=== PATIENT | female | born 1955 | race Hispanic/Latino ===

== ENCOUNTER → 2018-06-03 | Outpatient (CLI) | payer MEDICARE ==
[~2018-06-03] MED LIST: CARV3.12 PO; CLOP75TA14 PO; CYCL10 PO; HUM10VIA6 SQ; LIDOP TP; LISI-613 PO; MELO-106 PO; ONDA8TAB5 PO; PANT40TA25 PO; PHOSLOC PO; SIMV20TA6 PO; TEMA15CA PO; TRAM50TA4 PO
== END | disposition home or self-care (01) ==
LOC: SHCH 10:41
PROVIDERS: ATTEND Internal Medicine Cardiovascular Disease
DX: I11.9 Hypertensive heart disease without heart failure (principal); I34.0 Nonrheumatic mitral (valve) insufficiency; I25.10 Atherosclerotic heart disease of native coronary artery without angina pectoris
CPT/HCPCS: 93306

== ENCOUNTER 2018-11-27 15:19 | Emergency (ER) | payer MEDICARE ==
[2018-11-27] MEDS ORDERED: TETANUS/DIPHTHERIA TOXOID [ADULT] 0.5 ML VIAL IM ONE (15:33)
[2018-11-27] MEDS ORDERED: KETOROLAC TROMETHAMINE 60 MG/2 ML VIAL ONE (15:57)
== END 2018-11-27 16:28 | disposition home or self-care (01) ==
LOC: EDH 15:19
DX: S80.01XA Contusion of right knee, initial encounter (principal); S90.511A Abrasion, right ankle, initial encounter; I12.0 Hypertensive chronic kidney disease with stage 5 chronic kidney disease or end stage renal disease; E11.22 Type 2 diabetes mellitus with diabetic chronic kidney disease; N18.6 End stage renal disease; Z99.2 Dependence on renal dialysis; W18.39XA Other fall on same level, initial encounter; Y93.01 Activity, walking, marching and hiking; Y92.89 Other specified places as the place of occurrence of the external cause; Y99.8 Other external cause status
CPT/HCPCS: 29505; 73562; 90471; 90714; 96372; 99284; J1885

== ENCOUNTER 2018-11-29 03:45 | Observation (INO) | payer MEDICARE ==
[~2018-11-29] VITALS: Ht 152.4 cm; Wt 75.4 kg
[2018-11-29] MEDS ORDERED: ONDANSETRON HCL 4 MG/2 ML VIAL ONE ×2 (04:28→10:57)
[2018-11-29 04:53] LABS: BASOPHILS % (AUTO) 0.3 % (0.0-5.0); EOSINOPHILS % (AUTO) 0.6 % (0.0-8.0); HEMATOCRIT 34.7 % (36-48); MEAN CORPUSCULAR HEMOGLOBIN 32.5 pg (27.0-33.0); MEAN CORPUSCULAR HGB CONC 33.4 g/dL (32.0-36.0); MEAN CORPUSCULAR VOLUME 97.5 fL (79-99); MONOCYTES % (AUTO) 3.6 % (3.0-13.0); NEUTROPHILS % (AUTO) 84.5 % (40.0-77.0); PLATELET COUNT (AUTO) 164 K/uL (130-400); RED BLOOD CELL COUNT(AUTO) 3.56 MIL/uL (4.00-5.50); RED CELL DISTRIBUTION WIDTH 13.8 % (11.0-15.5); WHITE BLOOD COUNT (AUTO) 8.3 K/uL (4.8-10.8)
[2018-11-29] MEDS ORDERED: MORPHINE SULFATE 2 MG/ML 1ML SYG ONE (05:07)
[2018-11-29 05:08] LABS: BILIRUBIN,TOTAL 0.7 mg/dL (0.2-1.0); POTASSIUM 5.3 mmol/L (3.5-5.1); TOTAL PROTEIN, SERUM 7.4 g/dL (6.0-8.3)
[2018-11-29 05:14] LABS: CREATININE 8.4 mg/dL (0.5-1.5)
[2018-11-29] MEDS ORDERED: INSULIN HUMULIN R 100 UNIT/ML 3ML ONE (06:21)
[2018-11-29] MEDS ORDERED: ACETAMINOPHEN 325 MG TAB PO PRN (09:15)
[2018-11-29] MEDS ORDERED: ONDANSETRON HCL 4 MG/2 ML VIAL IV PRN (09:15)
[2018-11-29] MEDS ORDERED: DEXTROSE 50%-WATER 50 ML DISP.SYRIN IV PRN (09:15)
[2018-11-29] MEDS ORDERED: GLUCAGON 1MG KIT 1 MG ML IM PRN (09:15)
[2018-11-29] MEDS ORDERED: HYDRALAZINE HCL 20 MG/ML VIAL IV PRN (09:15)
[2018-11-29] MEDS ORDERED: METOCLOPRAMIDE 10 MG/2 ML VIAL ONE (10:57)
[2018-11-29] MEDS ORDERED: LORAZEPAM 2 MG/ML 1 ML VIAL ONE (15:27)
[2018-11-29 20:30] VITALS: BP 145/60
[2018-11-29] MEDS: METOCLOPRAMIDE 10 MG/2 ML VIAL IVP SCH ×2 (21:30→22:02)
[2018-11-29] MEDS: FAMOTIDINE/PF 20 MG/2 ML VIAL IV SCH (22:02)
[2018-11-29] MEDS: INSULIN HUMULIN R 100 UNIT/ML 3ML SQ SCH (22:08)
[2018-11-29 23:38] VITALS: BP 141/56
[2018-11-30] MEDS ORDERED: INSU10VI3 SQ ×2 (03:28)
[2018-11-30] MEDS ORDERED: METO25TA6 PO (03:28)
[2018-11-30] MEDS ORDERED: TRAZ-185 PO (03:28)
[2018-11-30] MEDS ORDERED: ONDA4TAB10 PO ×2 (03:28→11:28)
[2018-11-30] MEDS ORDERED: ALBUHFA IH (03:28)
[2018-11-30] MEDS ORDERED: LISI2.5T2 PO (03:28)
[2018-11-30 03:50] VITALS: BP 146/66
[2018-11-30 05:12] LABS: HEMATOCRIT 34.3 % (36-48); MEAN CORPUSCULAR HEMOGLOBIN 33.4 pg (27.0-33.0); MEAN CORPUSCULAR HGB CONC 34.5 g/dL (32.0-36.0); MEAN CORPUSCULAR VOLUME 97.1 fL (79-99); PLATELET COUNT (AUTO) 204 K/uL (130-400); RED BLOOD CELL COUNT(AUTO) 3.53 MIL/uL (4.00-5.50); WHITE BLOOD COUNT (AUTO) 7.3 K/uL (4.8-10.8)
[2018-11-30 05:24] LABS: ALBUMIN 3.7 g/dL (3.5-5.0); BILIRUBIN,TOTAL 0.6 mg/dL (0.2-1.0); CREATININE 5.8 mg/dL (0.5-1.5); POTASSIUM 4.6 mmol/L (3.5-5.1); TOTAL PROTEIN, SERUM 7.3 g/dL (6.0-8.3)
[2018-11-30] MEDS: INSULIN HUMULIN R 100 UNIT/ML 3ML SQ SCH ×4 (06:30→20:42)
[2018-11-30] MEDS: METOCLOPRAMIDE 10 MG/2 ML VIAL IVP SCH ×4 (06:34→20:44)
[2018-11-30 08:00] VITALS: BP 149/64
[2018-11-30] MEDS: FAMOTIDINE/PF 20 MG/2 ML VIAL IV SCH ×2 (08:28→20:44)
[2018-11-30] MEDS: ENOXAPARIN SODIUM 30 MG/0.3 ML SQ SCH (08:29)
[2018-11-30 12:00] VITALS: BP 149/63
[2018-11-30 16:00] VITALS: BP 146/71
--- NOTE | 2018-11-30 18:34 | NUR ---
[facility] PT AA[facility] IN NO DISTRESS, LIVES WITH SPOUSE WO WILL PORVIDE TRANSPORT ON DISCHARGE, HAS A RWKR, RAMP, SHOWER CHAIR, 39 HRS OF P[employer]VIDER SERVICES. DCP IS HOME Addendum: 11/30/18 at 1837 by RADHA PARSONS RN CM Amended: Links added.
--- NOTE | 2018-11-30 20:00 | NUR ---
Patient said that she is still feeling nauseated. And does not feel comfortable going home today. Want to stay overnight and see how she feels in the morning.
[2018-11-30 20:30] VITALS: BP 162/78
[2018-12-01 00:20] VITALS: BP 145/67
[2018-12-01 04:49] VITALS: BP 160/71
[2018-12-01] MEDS: METOCLOPRAMIDE 10 MG/2 ML VIAL IVP SCH ×3 (06:37→16:38)
[2018-12-01] MEDS: INSULIN HUMULIN R 100 UNIT/ML 3ML SQ SCH ×3 (06:40→16:25)
[2018-12-01 08:00] VITALS: BP 156/72
[2018-12-01] MEDS: FAMOTIDINE/PF 20 MG/2 ML VIAL IV SCH (08:13)
[2018-12-01] MEDS: ENOXAPARIN SODIUM 30 MG/0.3 ML SQ SCH (08:14)
[2018-12-01 11:52] VITALS: BP 128/51
[2018-12-01 16:00] VITALS: BP 148/67
--- NOTE | 2018-12-01 18:22 | NUR ---
INSTRUCTIONS DISCHARGE INSTRUCTIONS GIVEN TO PATIENT USING TEACH BACK. IV REMOVED WITH TIP INTACT. DIRECT PRESSURE APPLIED UNTIL BLEEDING CONTROLLED THEN SITE COVERED WITH GAUZE AND SECURED WITH TAPE. NEW PRESCRIPTION PLACED IN PACKET ALONG WITH ALL PRINTED INFORMATION AND MD INSTRUCTIONS. NO QUESTIONS OR CONCERNS VOICED. PENDING RIDE HOME.
== END 2018-12-01 19:00 | disposition home or self-care (01) ==
LOC: EDH 03:45 → EDHIP 07:14 → 3BH 20:18
PROVIDERS: ADMIT Internal Medicine; ATTEND Internal Medicine
DX: E11.43 Type 2 diabetes mellitus with diabetic autonomic (poly)neuropathy (principal); K31.84 Gastroparesis; E11.22 Type 2 diabetes mellitus with diabetic chronic kidney disease; I12.0 Hypertensive chronic kidney disease with stage 5 chronic kidney disease or end stage renal disease; N18.6 End stage renal disease; Z99.2 Dependence on renal dialysis; R11.2 Nausea with vomiting, unspecified; Z79.4 Long term (current) use of insulin
CPT/HCPCS: 36415 ×2; 71045; 80053 ×2; 82550; 82948 ×9; 83690; 84484; 85025; 85027; 93005; 96372 ×3; 96374; 96375; 96376 ×2; 99284; G0378 ×60; J1650 ×2; J1815 ×3; J2060; J2405 ×3; J2765 ×8; J3490 ×4; 90935

== ENCOUNTER 2019-06-24 14:22 | Emergency (ER) | payer MEDICARE ==
[~2019-06-24 14:22] MED LIST changes: +ALBUHFA IH; -CARV3.12 PO; -CLOP75TA14 PO; -CYCL10 PO; -HUM10VIA6 SQ; +INSU10VI3 SQ; -LIDOP TP; -LISI-613 PO; +LISI2.5T2 PO; -MELO-106 PO; +METO25TA6 PO; +ONDA4TAB10 PO; -ONDA8TAB5 PO; -PHOSLOC PO; +SIMV-43 PO; -SIMV20TA6 PO; -TEMA15CA PO; -TRAM50TA4 PO; +TRAZ-185 PO
[2019-06-24] MEDS ORDERED: ACETAMINOPHEN EXTRA STRENGTH 500 MG TABLET ONE (14:46)
[2019-06-24] MEDS ORDERED: KETOROLAC TROMETHAMINE 15MG/ML ONE (15:47)
[2019-06-24 16:21] LABS: BASOPHILS % (AUTO) 0.5 % (0.0-5.0); EOSINOPHILS % (AUTO) 0.5 % (0.0-8.0); HEMATOCRIT 32.7 % (36-48); LYMPHOCYTES % (AUTO) 12.8 % (21.0-51.0); MEAN CORPUSCULAR HEMOGLOBIN 33.1 pg (27.0-33.0); MEAN CORPUSCULAR HGB CONC 33.9 g/dL (32.0-36.0); MEAN CORPUSCULAR VOLUME 97.6 fL (79-99); MONOCYTES % (AUTO) 8.7 % (3.0-13.0); NEUTROPHILS % (AUTO) 76.9 % (40.0-77.0); PLATELET COUNT (AUTO) 166 K/uL (130-400); RED BLOOD CELL COUNT(AUTO) 3.35 MIL/uL (4.00-5.50); RED CELL DISTRIBUTION WIDTH 12.6 % (11.0-15.5); WHITE BLOOD COUNT (AUTO) 6.3 K/uL (4.8-10.8)
[2019-06-24 16:37] LABS: INR 1.02 (0.85-1.15); PARTIAL THROMBOPLASTIN TIME 26.6 SEC (26.3-35.5); PROTHROMBIN TIME 10.7 SEC (9.6-11.6)
[2019-06-24 16:43] LABS: CREATININE 4.3 mg/dL (0.5-1.5); POTASSIUM 3.8 mmol/L (3.5-5.1)
[2019-06-24 16:47] LABS: ALBUMIN 3.6 g/dL (3.5-5.0); BILIRUBIN,TOTAL 0.4 mg/dL (0.2-1.0); TOTAL PROTEIN, SERUM 6.9 g/dL (6.0-8.3)
[2019-06-24] MEDS ORDERED: TRAMADOL HCL 50 MG TABLET ONE (16:59)
== END 2019-06-24 17:09 | disposition home or self-care (01) ==
LOC: EDH 14:22
DX: S42.021A Displaced fracture of shaft of right clavicle, initial encounter for closed fracture (principal); W01.0XXA Fall on same level from slipping, tripping and stumbling without subsequent striking against object, initial encounter; Y93.89 Activity, other specified; Y92.89 Other specified places as the place of occurrence of the external cause; Y99.8 Other external cause status; E11.22 Type 2 diabetes mellitus with diabetic chronic kidney disease; I12.0 Hypertensive chronic kidney disease with stage 5 chronic kidney disease or end stage renal disease; N18.6 End stage renal disease; Z90.49 Acquired absence of other specified parts of digestive tract
CPT/HCPCS: 36415; 70450; 72125; 73030; 80053; 82550; 84484; 85025; 85610; 85730; 93005; 96374; 99285; J1885

== ENCOUNTER 2021-02-19 02:24 | Emergency (ER) | payer MEDICARE ==
[~2021-02-19] VITALS: Ht 154.9 cm; Wt 77.1 kg
[~2021-02-19 02:24] MED LIST changes: +LISI2.5T13 PO; -LISI2.5T2 PO; -PANT40TA25 PO; +PANT40TA54 PO
[2021-02-19 03:45] VITALS: BP 123/63
== END 2021-02-19 04:30 | disposition home or self-care (01) ==
LOC: EDH 02:24
DX: T82.858A Stenosis of other vascular prosthetic devices, implants and grafts, initial encounter (principal); I12.0 Hypertensive chronic kidney disease with stage 5 chronic kidney disease or end stage renal disease; E11.22 Type 2 diabetes mellitus with diabetic chronic kidney disease; N18.6 End stage renal disease; E78.00 Pure hypercholesterolemia, unspecified; Z79.4 Long term (current) use of insulin; Z79.899 Other long term (current) drug therapy; Z88.0 Allergy status to penicillin; Z88.5 Allergy status to narcotic agent; Z99.2 Dependence on renal dialysis; Y83.8 Other surgical procedures as the cause of abnormal reaction of the patient, or of later complication, without mention of misadventure at the time of the procedure; Y92.89 Other specified places as the place of occurrence of the external cause
CPT/HCPCS: 99281

== ENCOUNTER 2021-05-22 09:41 | Inpatient (IN) | payer MEDICARE ==
[~2021-05-22] VITALS: Ht 154.9 cm; Wt 74.7 kg
[2021-05-22 11:03] LABS: BASOPHILS % (AUTO) 0.6 % (0.0-5.0); EOSINOPHILS % (AUTO) 0.8 % (0.0-8.0); HEMATOCRIT 36.7 % (36-48); LYMPHOCYTES % (AUTO) 11.6 % (21.0-51.0); MEAN CORPUSCULAR HEMOGLOBIN 29.7 pg (27.0-33.0); MEAN CORPUSCULAR HGB CONC 30.8 g/dL (32.0-36.0); MEAN CORPUSCULAR VOLUME 96.3 fL (79-99); MONOCYTES % (AUTO) 8.3 % (3.0-13.0); NEUTROPHILS % (AUTO) 78.3 % (40.0-77.0); PLATELET COUNT (AUTO) 166 K/uL (130-400); RED BLOOD CELL COUNT(AUTO) 3.81 MIL/uL (4.00-5.50); RED CELL DISTRIBUTION WIDTH 17.6 % (11.0-15.5); WHITE BLOOD COUNT (AUTO) 5.1 K/uL (4.8-10.8)
[2021-05-22 11:15] LABS: CREATININE 5.1 mg/dL (0.5-1.5); POTASSIUM 3.4 mmol/L (3.5-5.1)
[2021-05-22 11:20] LABS: ALBUMIN 3.6 g/dL (3.5-5.0); BILIRUBIN,TOTAL 0.9 mg/dL (0.2-1.0); MAGNESIUM 2.3 mg/dL (1.80-2.40)
[2021-05-22] MEDS ORDERED: HYDRALAZINE 20MG/ML VIAL IV PRN (12:30)
[2021-05-22] MEDS ORDERED: ACETAMINOPHEN 325 MG TAB PO PRN (12:30)
[2021-05-22] MEDS ORDERED: ASPIRIN 81MG CHEW TAB PO SCH (12:30)
[2021-05-22] MEDS ORDERED: NITROGLYCERIN 1GM OINT 1 INCH/1GM TD PRN (12:30)
[2021-05-22 13:13] LABS: INR 1.16 (0.85-1.15); PROTHROMBIN TIME 12.5 SEC (9.6-11.6)
[2021-05-22 13:18] LABS: CRP QUANTITATIVE 2.2 mg/L (0.00-9.0)
[2021-05-22] MEDS: ACETAMINOPHEN 325 MG TAB PO PRN (16:29)
[2021-05-22] MEDS ORDERED: ROPINIROLE HCL 0.25 MG TABLET PO ONE (23:00)
[2021-05-23 00:40] VITALS: BP 123/66
[2021-05-23] MEDS ORDERED: MORPHINE 2 MG SYG IVP ONE (01:30)
[2021-05-23] MEDS ORDERED: MORPHINE 2 MG SYG ONE (01:33)
[2021-05-23] MEDS: ONDANSETRON 4MG INJ IV PRN (03:33)
[2021-05-23 06:31] VITALS: BP 123/3
[2021-05-23 06:32] LABS: MEAN CORPUSCULAR HEMOGLOBIN 29.7 pg (27.0-33.0); MEAN CORPUSCULAR HGB CONC 29.7 g/dL (32.0-36.0); RED BLOOD CELL COUNT(AUTO) 3.7 MIL/uL (4.00-5.50); RED CELL DISTRIBUTION WIDTH 17.4 % (11.0-15.5); WHITE BLOOD COUNT (AUTO) 4.7 K/uL (4.8-10.8)
[2021-05-23 07:02] LABS: CREATININE 6.6 mg/dL (0.5-1.5); POTASSIUM 4.2 mmol/L (3.5-5.1)
[2021-05-23] MEDS: FAMOTIDINE 20MG VIAL IV SCH (09:00)
[2021-05-23] MEDS ORDERED: OMEP20CA12 PO (10:59)
[2021-05-23] MEDS ORDERED: ERGO50CA PO (11:02)
[2021-05-23] MEDS ORDERED: BENZ-39 PO (11:05)
[2021-05-23] MEDS ORDERED: FOLI1TAB85 PO (11:07)
[2021-05-23] MEDS ORDERED: HYD25 PO (11:11)
[2021-05-23 12:00] VITALS: BP 130/71
[2021-05-23] MEDS ORDERED: HYDROXYZINE 10 MG TABLET PO PRN (13:00)
[2021-05-23] MEDS ORDERED: ASPIRIN 81MG CHEW TAB PO ONE (13:00)
[2021-05-23 13:05] LABS: HEMOGLOBIN A1C 8.1 % (4.0-6.0)
[2021-05-23] MEDS: BENZONATATE 100 MG CAPSULE PO SCH ×2 (13:16→20:28)
[2021-05-23] MEDS: ASPIRIN 81MG CHEW TAB PO SCH (13:16)
[2021-05-23 13:36] LABS: THYROID STIMULATING HORMONE 3.48 uIU/mL (0.36-3.74)
[2021-05-23 16:00] VITALS: BP 130/63
[2021-05-23 20:00] VITALS: BP 152/71
[2021-05-23] MEDS: HYDROXYZINE 25 MG TABLET PO PRN (20:27)
[2021-05-23] MEDS: INSULIN HUMULIN R 100 UNIT/ML 3ML SQ SCH (20:30)
[2021-05-23] MEDS: ACETAMINOPHEN 325 MG TAB PO PRN (21:35)
[2021-05-24 00:26] VITALS: BP 113/64
[2021-05-24 04:05] VITALS: BP 111/57
[2021-05-24] MEDS: INSULIN HUMULIN R 100 UNIT/ML 3ML SQ SCH ×3 (05:43→21:02)
[2021-05-24 07:19] LABS: BASOPHILS % (AUTO) 1.1 % (0.0-5.0); EOSINOPHILS % (AUTO) 3.2 % (0.0-8.0); HEMATOCRIT 35.6 % (36-48); LYMPHOCYTES % (AUTO) 22.2 % (21.0-51.0); MEAN CORPUSCULAR HEMOGLOBIN 29.3 pg (27.0-33.0); MEAN CORPUSCULAR HGB CONC 30.3 g/dL (32.0-36.0); MEAN CORPUSCULAR VOLUME 96.7 fL (79-99); MONOCYTES % (AUTO) 11.9 % (3.0-13.0); NEUTROPHILS % (AUTO) 61.4 % (40.0-77.0); PLATELET COUNT (AUTO) 186 K/uL (130-400); RED BLOOD CELL COUNT(AUTO) 3.68 MIL/uL (4.00-5.50); RED CELL DISTRIBUTION WIDTH 17.2 % (11.0-15.5); WHITE BLOOD COUNT (AUTO) 4.6 K/uL (4.8-10.8)
[2021-05-24 07:35] LABS: ALBUMIN 3.3 g/dL (3.5-5.0); BILIRUBIN,TOTAL 0.6 mg/dL (0.2-1.0); MAGNESIUM 2.4 mg/dL (1.80-2.40); PHOSPHORUS 8.1 mg/dL (2.5-4.9); POTASSIUM 4.5 mmol/L (3.5-5.1); TOTAL PROTEIN, SERUM 6.7 g/dL (6.0-8.3)
[2021-05-24 07:36] LABS: CREATININE 8.2 mg/dL (0.5-1.5)
[2021-05-24 08:00] VITALS: BP 114/50
[2021-05-24] MEDS: VIT D2 PO SCH (09:00)
[2021-05-24] MEDS ORDERED: LISINOPRIL 2.5 MG TABLET PO SCH (09:00)
[2021-05-24] MEDS: ASPIRIN 81MG CHEW TAB PO SCH (10:46)
[2021-05-24] MEDS: PANTOPRAZOLE 40 MG TAB DR PO SCH (10:46)
[2021-05-24] MEDS: Vitamin B Complex/Vit C/Folic Acid PO SCH (10:46)
[2021-05-24] MEDS: SIMVASTATIN 20 MG TABLET PO SCH (10:46)
[2021-05-24] MEDS: BENZONATATE 100 MG CAPSULE PO SCH ×3 (10:47→20:55)
[2021-05-24] MEDS: FAMOTIDINE 20MG VIAL IV SCH (10:47)
[2021-05-24 11:55] VITALS: BP 121/40
[2021-05-24] MEDS ORDERED: IOHEXOL 350 MG/ML 100ML INFUS..BTL IV ONE (12:12)
[2021-05-24 16:00] VITALS: BP 125/59
[2021-05-24] MEDS: LISINOPRIL 2.5 MG TABLET PO SCH (16:16)
[2021-05-24 20:00] VITALS: BP 119/58
[2021-05-24] MEDS: HYDROXYZINE 25 MG TABLET PO PRN (20:55)
[2021-05-25] VITALS (33 sets, daily range): BP systolic 101–159; BP diastolic 41–93
[2021-05-25] MEDS: ONDANSETRON 4MG INJ IV PRN ×2 (01:34→09:53)
[2021-05-25] MEDS: ACETAMINOPHEN 325 MG TAB PO PRN ×2 (04:35→09:53)
[2021-05-25 06:13] LABS: BASOPHILS % (AUTO) 0.3 % (0.0-5.0); EOSINOPHILS % (AUTO) 0.3 % (0.0-8.0); HEMATOCRIT 33.6 % (36-48); MEAN CORPUSCULAR HEMOGLOBIN 29.4 pg (27.0-33.0); MEAN CORPUSCULAR HGB CONC 30.4 g/dL (32.0-36.0); MEAN CORPUSCULAR VOLUME 96.8 fL (79-99); MONOCYTES % (AUTO) 7.6 % (3.0-13.0); NEUTROPHILS % (AUTO) 87.3 % (40.0-77.0); PLATELET COUNT (AUTO) 171 K/uL (130-400); RED BLOOD CELL COUNT(AUTO) 3.47 MIL/uL (4.00-5.50); RED CELL DISTRIBUTION WIDTH 17.3 % (11.0-15.5); WHITE BLOOD COUNT (AUTO) 8.6 K/uL (4.8-10.8)
[2021-05-25 06:24] LABS: POTASSIUM 4.8 mmol/L (3.5-5.1)
[2021-05-25 06:31] LABS: CREATININE 9.5 mg/dL (0.5-1.5)
[2021-05-25] MEDS: INSULIN HUMULIN R 100 UNIT/ML 3ML SQ SCH ×4 (07:07→22:00)
[2021-05-25] MEDS: BENZONATATE 100 MG CAPSULE PO SCH (08:23)
[2021-05-25] MEDS: SIMVASTATIN 20 MG TABLET PO SCH (08:23)
[2021-05-25] MEDS: Vitamin B Complex/Vit C/Folic Acid PO SCH (08:24)
[2021-05-25] MEDS: ASPIRIN 81MG CHEW TAB PO SCH (08:24)
[2021-05-25] MEDS: FAMOTIDINE 20MG VIAL IV SCH (08:24)
[2021-05-25] MEDS: PANTOPRAZOLE 40 MG TAB DR PO SCH (08:24)
[2021-05-25] MEDS: LISINOPRIL 2.5 MG TABLET PO SCH (09:00)
[2021-05-25] MEDS: VIT D2 PO SCH (09:00)
[2021-05-25] MEDS ORDERED: DEXTROSE 50%-WATER 50 ML DISP.SYRIN IV ONE ×2 (14:24→14:30)
[2021-05-25 14:33] LABS: HEMATOCRIT 34.6 % (36-48); LYMPHOCYTES % (AUTO) 3.4 % (21.0-51.0); MEAN CORPUSCULAR HEMOGLOBIN 29.8 pg (27.0-33.0); MEAN CORPUSCULAR HGB CONC 30.9 g/dL (32.0-36.0); MEAN CORPUSCULAR VOLUME 96.4 fL (79-99); MONOCYTES % (AUTO) 1.3 % (3.0-13.0); NEUTROPHILS % (AUTO) 91.9 % (40.0-77.0); PLATELET COUNT (AUTO) 161 K/uL (130-400); RED BLOOD CELL COUNT(AUTO) 3.59 MIL/uL (4.00-5.50); RED CELL DISTRIBUTION WIDTH 17.6 % (11.0-15.5); WHITE BLOOD COUNT (AUTO) 4.7 K/uL (4.8-10.8)
[2021-05-25 14:44] LABS: ABG BASE EXCESS 3.9 mmol/L (-2.0-3.0); ABG HCO3 26.3 mmol/L (21.0-28.0); ABG OXYGEN SATURATION 90.9 % (95.0-99.0); ABG PCO2 32 mmHg (32-45)
[2021-05-25 14:48] LABS: INR 1.15 (0.85-1.15); PROTHROMBIN TIME 12.4 SEC (9.6-11.6)
[2021-05-25 14:49] LABS: PARTIAL THROMBOPLASTIN TIME 25.8 SEC (26.3-35.5)
[2021-05-25] MEDS ORDERED: VANCOMYCIN PROTOCOL PER PHARMACY IV SCH (15:00)
[2021-05-25 15:14] LABS: CREATININE 5.9 mg/dL (0.5-1.5); POTASSIUM 3.4 mmol/L (3.5-5.1)
[2021-05-25 15:23] LABS: ALBUMIN 3.5 g/dL (3.5-5.0); BILIRUBIN,TOTAL 1.1 mg/dL (0.2-1.0); MAGNESIUM 2.2 mg/dL (1.80-2.40); TOTAL PROTEIN, SERUM 6.5 g/dL (6.0-8.3)
[2021-05-25] MEDS ORDERED: PHARMACY COMMUNICATION MISC SCH (15:30)
[2021-05-25] MEDS ORDERED: ALBUMIN (HUMAN) 25% 100 ML IV PRN (15:30)
[2021-05-25] MEDS ORDERED: LACTULOSE 20 GM/30 ML UDCUP PR SCH (16:00)
[2021-05-25] MEDS ORDERED: VANCOMYCIN 1G/250ML KIT 250 ML IV SCH (16:00)
[2021-05-25] MEDS ORDERED: COMPOUND IV MISC 1 EACH IVSOLN MISC PRN (16:30)
[2021-05-25] MEDS ORDERED: 0.9%NACL 100ML 100 ML ONE (16:54)
[2021-05-25] MEDS: MEROPENEM 500 MG VIAL IVP SCH (16:56)
[2021-05-25] MEDS: LEVETIRACETAM 500 MG in 0.9%NACL 100ML 100 ML IV SCH (17:08)
[2021-05-26] VITALS (17 sets, daily range): BP systolic 96–132; BP diastolic 42–71
[2021-05-26] MEDS: MEROPENEM 500 MG VIAL IVP SCH ×2 (03:00→14:56)
[2021-05-26] MEDS: LEVETIRACETAM 500 MG in 0.9%NACL 100ML 100 ML IV SCH ×2 (04:20→16:53)
[2021-05-26 04:41] LABS: ALBUMIN 3.1 g/dL (3.5-5.0); BILIRUBIN,TOTAL 1.2 mg/dL (0.2-1.0); CREATININE 6.7 mg/dL (0.5-1.5); POTASSIUM 4.1 mmol/L (3.5-5.1); TOTAL PROTEIN, SERUM 6.2 g/dL (6.0-8.3)
[2021-05-26 05:31] LABS: BASOPHILS % (AUTO) 0.3 % (0.0-5.0); HEMATOCRIT 33.8 % (36-48); LYMPHOCYTES % (AUTO) 2.9 % (21.0-51.0); MEAN CORPUSCULAR HEMOGLOBIN 29.7 pg (27.0-33.0); MEAN CORPUSCULAR HGB CONC 31.7 g/dL (32.0-36.0); MEAN CORPUSCULAR VOLUME 93.9 fL (79-99); MONOCYTES % (AUTO) 1.6 % (3.0-13.0); NEUTROPHILS % (AUTO) 91.5 % (40.0-77.0); PLATELET COUNT (AUTO) 146 K/uL (130-400)
[2021-05-26] MEDS: LACTULOSE 20 GM/30 ML UDCUP PR SCH ×3 (06:00→11:37)
[2021-05-26] MEDS ORDERED: PHARMACY COMMUNICATION MISC SCH (06:30)
[2021-05-26 07:11] LABS: ABG BASE EXCESS 3.5 mmol/L (-2.0-3.0); ABG HCO3 26.3 mmol/L (21.0-28.0); ABG OXYGEN SATURATION 94.3 % (95.0-99.0); ABG PCO2 34 mmHg (32-45)
[2021-05-26] MEDS: LEVOFLOXACIN 750 MG/D5W 150 ML 150 ML IV SCH (07:26)
[2021-05-26] MEDS: INSULIN HUMULIN R 100 UNIT/ML 3ML SQ SCH ×4 (07:28→20:07)
[2021-05-26] MEDS: FAMOTIDINE 20MG VIAL IV SCH (07:58)
[2021-05-26] MEDS: Vitamin B Complex/Vit C/Folic Acid PO SCH (09:00)
[2021-05-26] MEDS: VIT D2 PO SCH (09:00)
[2021-05-26] MEDS: SIMVASTATIN 20 MG TABLET PO SCH (09:00)
[2021-05-26] MEDS: PANTOPRAZOLE 40 MG TAB DR PO SCH (09:00)
[2021-05-26] MEDS: ASPIRIN 81MG CHEW TAB PO SCH (09:00)
[2021-05-26] MEDS: LACTULOSE 20 GM/30 ML UDCUP PO SCH ×2 (20:06→20:08)
[2021-05-27] VITALS (19 sets, daily range): BP systolic 106–140; BP diastolic 46–65
[2021-05-27] MEDS: MEROPENEM 500 MG VIAL IVP SCH ×2 (03:08→16:23)
[2021-05-27 04:57] LABS: BASOPHILS % (AUTO) 0.6 % (0.0-5.0); HEMATOCRIT 30.9 % (36-48); LYMPHOCYTES % (AUTO) 8.6 % (21.0-51.0); MEAN CORPUSCULAR HEMOGLOBIN 29.4 pg (27.0-33.0); MEAN CORPUSCULAR HGB CONC 30.7 g/dL (32.0-36.0); MEAN CORPUSCULAR VOLUME 95.7 fL (79-99); MONOCYTES % (AUTO) 11.3 % (3.0-13.0); PLATELET COUNT (AUTO) 127 K/uL (130-400); RED BLOOD CELL COUNT(AUTO) 3.23 MIL/uL (4.00-5.50); RED CELL DISTRIBUTION WIDTH 17.5 % (11.0-15.5); WHITE BLOOD COUNT (AUTO) 8.3 K/uL (4.8-10.8)
[2021-05-27] MEDS: LEVETIRACETAM 500 MG in 0.9%NACL 100ML 100 ML IV SCH ×2 (05:29→16:23)
[2021-05-27 05:32] LABS: ALBUMIN 2.8 g/dL (3.5-5.0); BILIRUBIN,DIRECT 0.2 mg/dL (0.0-0.3); BILIRUBIN,TOTAL 0.7 mg/dL (0.2-1.0); POTASSIUM 3.9 mmol/L (3.5-5.1); TOTAL PROTEIN, SERUM 5.6 g/dL (6.0-8.3)
[2021-05-27 05:39] LABS: CREATININE 8.4 mg/dL (0.5-1.5)
[2021-05-27] MEDS: LEVOFLOXACIN 750 MG/D5W 150 ML 150 ML IV SCH (06:30)
[2021-05-27] MEDS: INSULIN HUMULIN R 100 UNIT/ML 3ML SQ SCH ×4 (06:56→20:49)
[2021-05-27] MEDS: LACTULOSE 20 GM/30 ML UDCUP PO SCH ×3 (08:00→19:35)
[2021-05-27] MEDS: ASPIRIN 81MG CHEW TAB PO SCH (09:00)
[2021-05-27] MEDS ORDERED: EPOETIN ALFA-EPBX (ESRD) 10,000 UNIT/ML VIAL SQ SCH (09:00)
[2021-05-27] MEDS: PANTOPRAZOLE 40 MG TAB DR PO SCH (09:00)
[2021-05-27] MEDS: Vitamin B Complex/Vit C/Folic Acid PO SCH (09:00)
[2021-05-27] MEDS: FAMOTIDINE 20MG VIAL IV SCH (09:00)
[2021-05-27] MEDS: SIMVASTATIN 20 MG TABLET PO SCH (09:00)
[2021-05-27] MEDS: VIT D2 PO SCH (09:00)
[2021-05-27] MEDS: SEVELAMER HCL 800 MG TABLET PO SCH ×2 (12:27→16:23)
[2021-05-27] MEDS ORDERED: LOPERAMIDE 1 MG/7.5 ML UDCUP PO SCH (14:03)
[2021-05-27] MEDS ORDERED: GUAIFENESIN-DM 200/20 MG 10 ML PO PRN (19:00)
[2021-05-27] MEDS: ACETAMINOPHEN 325 MG TAB PO PRN (21:40)
[2021-05-28 00:32] VITALS: BP 94/53
[2021-05-28] MEDS: LACTULOSE 20 GM/30 ML UDCUP PO SCH (02:00)
[2021-05-28] MEDS: MEROPENEM 500 MG VIAL IVP SCH (04:08)
[2021-05-28 04:19] LABS: HEMATOCRIT 32.9 % (36-48); MEAN CORPUSCULAR HEMOGLOBIN 29.3 pg (27.0-33.0); MEAN CORPUSCULAR HGB CONC 30.7 g/dL (32.0-36.0); MEAN CORPUSCULAR VOLUME 95.4 fL (79-99); RED BLOOD CELL COUNT(AUTO) 3.45 MIL/uL (4.00-5.50); RED CELL DISTRIBUTION WIDTH 17.3 % (11.0-15.5); RETICULOCYTE % (AUTO) 1.24 % (0.42-2.23)
[2021-05-28 04:36] VITALS: BP 107/54
[2021-05-28] MEDS: LEVETIRACETAM 500 MG in 0.9%NACL 100ML 100 ML IV SCH (04:55)
[2021-05-28 05:04] LABS: ALANINE AMINOTRANSFERASE 36 U/L (12-78); ALBUMIN 2.7 g/dL (3.5-5.0); ASPARTATE AMINOTRANSFERASE 24 U/L (10-37); BILIRUBIN,TOTAL 0.5 mg/dL (0.2-1.0); CARBON DIOXIDE 33 mmol/L (21-32); CHLORIDE 101 mmol/L (101-111); CREATININE 6.9 mg/dL (0.5-1.5); GLOMERULAR FILTR. RATE CALC 6 mL/min (>60); GLUCOSE,RANDOM 162 mg/dL (70-105); POTASSIUM 3.9 mmol/L (3.5-5.1); SODIUM SERUM 140 mmol/L (136-145); THYROID STIMULATING HORMONE 3.24 uIU/mL (0.36-3.74); TOTAL PROTEIN, SERUM 5.6 g/dL (6.0-8.3); UREA NITROGEN, BLOOD 47 mg/dL (7-18)
[2021-05-28 05:08] LABS: % IRON SATURATION 25.9 % (22-44)
[2021-05-28] MEDS: LEVOFLOXACIN 750 MG/D5W 150 ML 150 ML IV SCH (06:30)
[2021-05-28] MEDS: INSULIN HUMULIN R 100 UNIT/ML 3ML SQ SCH (07:30)
[2021-05-28 07:53] VITALS: BP 101/49
[2021-05-28] MEDS: SEVELAMER HCL 800 MG TABLET PO SCH (08:00)
[2021-05-28] MEDS: VIT D2 PO SCH (09:00)
[2021-05-28] MEDS ORDERED: LEVOFLOXACIN 500 MG/D5W 100 ML 100 ML IV SCH (09:00)
[2021-05-28] MEDS ORDERED: LACTULOSE 20 GM/30 ML UDCUP PO SCH (09:00)
[2021-05-28] MEDS: Vitamin B Complex/Vit C/Folic Acid PO SCH (10:06)
[2021-05-28] MEDS: ASPIRIN 81MG CHEW TAB PO SCH (10:06)
[2021-05-28] MEDS: PANTOPRAZOLE 40 MG TAB DR PO SCH (10:06)
[2021-05-28] MEDS: SIMVASTATIN 20 MG TABLET PO SCH (10:07)
[2021-05-28] MEDS: FAMOTIDINE 20MG VIAL IV SCH (10:07)
[2021-05-28] MEDS ORDERED: ASPI-1005 PO (10:44)
[2021-05-28] MEDS ORDERED: LEVO500T90 PO (10:44)
[2021-05-28] MEDS ORDERED: SEVE800 PO (10:44)
[2021-05-28] MEDS ORDERED: LEVE500T19 PO (10:44)
[2021-05-28 11:25] VITALS: BP 105/54
== END 2021-05-28 13:20 | disposition home or self-care (01) | DRG 871 ==
LOC: EDH 09:41 → OBSVTOIN 12:17 → UNDOADMOB 12:17 → EDHIP 12:17 → UNDOADMOB 12:18 → EDHIP 12:18 → 4CH 05-23 00:54 → OBSVTOIN 05-24 13:32 → INTOOBSV 05-24 13:32 → 4CH 05-25 15:39 → 2CH 05-25 15:39 → 2BH 05-26 17:30 → 2CH 05-26 17:30 → 4DH 05-27 01:44 → 2BH 05-27 01:44
PROVIDERS: ADMIT Hospitalist; ATTEND Hospitalist
PROC: 5A1D70Z Performance of Urinary Filtration, Intermittent, Less than 6 Hours Per Day (ICD-10-PCS; 2021-05-23)
PROC: 5A09357 Assistance with Respiratory Ventilation, Less than 24 Consecutive Hours, Continuous Positive Airway Pressure (ICD-10-PCS; principal; 2021-05-25)
PROC: 5A1D70Z Performance of Urinary Filtration, Intermittent, Less than 6 Hours Per Day (ICD-10-PCS; 2021-05-25)
PROC: 5A1D70Z Performance of Urinary Filtration, Intermittent, Less than 6 Hours Per Day (ICD-10-PCS; 2021-05-27)
DX: A41.50 Gram-negative sepsis, unspecified (principal); J96.01 Acute respiratory failure with hypoxia; I21.A1 Myocardial infarction type 2; N18.6 End stage renal disease; G45.9 Transient cerebral ischemic attack, unspecified; I13.2 Hypertensive heart and chronic kidney disease with heart failure and with stage 5 chronic kidney disease, or end stage renal disease; N25.81 Secondary hyperparathyroidism of renal origin; E87.4 Mixed disorder of acid-base balance; K72.90 Hepatic failure, unspecified without coma; R65.20 Severe sepsis without septic shock; K74.60 Unspecified cirrhosis of liver; E03.9 Hypothyroidism, unspecified; Z68.31 Body mass index [BMI] 31.0-31.9, adult; Z20.822 Contact with and (suspected) exposure to COVID-19; M19.90 Unspecified osteoarthritis, unspecified site; K21.9 Gastro-esophageal reflux disease without esophagitis; D63.1 Anemia in chronic kidney disease; E11.22 Type 2 diabetes mellitus with diabetic chronic kidney disease; E66.9 Obesity, unspecified; E78.00 Pure hypercholesterolemia, unspecified; E78.5 Hyperlipidemia, unspecified; E83.39 Other disorders of phosphorus metabolism; I08.3 Combined rheumatic disorders of mitral, aortic and tricuspid valves; I25.10 Atherosclerotic heart disease of native coronary artery without angina pectoris; I25.5 Ischemic cardiomyopathy; I27.20 Pulmonary hypertension, unspecified; E87.8 Other disorders of electrolyte and fluid balance, not elsewhere classified; I44.7 Left bundle-branch block, unspecified; R16.0 Hepatomegaly, not elsewhere classified; B96.5 Pseudomonas (aeruginosa) (mallei) (pseudomallei) as the cause of diseases classified elsewhere; I50.9 Heart failure, unspecified; R47.02 Dysphasia; Z99.2 Dependence on renal dialysis; Z88.0 Allergy status to penicillin; Z88.5 Allergy status to narcotic agent; Z98.49 Cataract extraction status, unspecified eye; Z79.4 Long term (current) use of insulin; Z95.810 Presence of automatic (implantable) cardiac defibrillator; Z95.5 Presence of coronary angioplasty implant and graft; Z95.1 Presence of aortocoronary bypass graft; Z90.49 Acquired absence of other specified parts of digestive tract; Z87.891 Personal history of nicotine dependence; Z83.3 Family history of diabetes mellitus; Z82.49 Family history of ischemic heart disease and other diseases of the circulatory system
CPT/HCPCS: 31720; 36415; 36600; 70450; 70496; 70498; 71045; 73200; 74018; 74176; 76705; 80048; 80053; 80061; 82105; 82140; 82248; 82435; 82550; 82607; 82746; 82803; 82947; 82948; 83036; 83540; 83550; 83605; 83735; 83880; 84100; 84132; 84145; 84295; 84443; 84484; 85018; 85025; 85027; 85045; 85378; 85610; 85651; 85730; 86140; 86704; 86705; 86706; 86717; 87040; 87071; 87077; 87186; 87205; 87340; 87517; 87635; 90935; 92610; 93005; 93306; 93356; 93880; 93970; 94660; 97039; A6250; G0378; J1815; J1953; J1956; J2185; J2405; J3370; J3490; J7070; Q9967